=== PATIENT | male | born 1965 ===

== ENCOUNTER 2018-02-22 21:42 | Emergency (ER) | payer OTHER ==
[~2018-02-22] VITALS: Ht 175.3 cm; Wt 122.0 kg
[2018-02-22] MEDS ORDERED: AVALIDE 300-121 EACH PO (22:05)
[2018-02-22] MEDS ORDERED: SYNTHROID100 MCG PO (22:05)
== END 2018-02-23 04:09 | disposition home or self-care (01) ==
LOC: ER 21:42 → CPU-OBS 22:11 → ER 02-23 04:09
DX: R07.89 Other chest pain (principal); I10 Essential (primary) hypertension
CPT/HCPCS: G0378; G0379; 93005

== ENCOUNTER 2018-03-06 07:16 | Outpatient (CLI) | payer OTHER ==
[~2018-03-06 07:16] MED LIST: AVALIDE 300-121 EACH PO; SYNTHROID100 MCG PO
[2018-03-09] MEDS ORDERED: ULTRAM50 MG PO (14:14)
[2018-03-09] MEDS ORDERED: FLAGYL500MG PO (14:14)
[2018-03-09] MEDS ORDERED: INTESTINEX680 M1 PO (14:14)
[2018-03-09] MEDS ORDERED: CIPRO500 MG PO (14:14)
== END 2018-03-06 07:22 | disposition home or self-care (01) ==
LOC: NUCLEAR 07:16
DX: R07.89 Other chest pain (principal); I10 Essential (primary) hypertension; E11.9 Type 2 diabetes mellitus without complications
CPT/HCPCS: 78452; 93017; A9500; J0153

== ENCOUNTER → 2018-03-09 | Emergency (ER) | payer OTHER ==
[~2018-03-09] VITALS: Ht 175.3 cm; Wt 122.5 kg
[~2018-03-09] MED LIST changes: +CIPRO500 MG PO; +FLAGYL500MG PO; +INTESTINEX680 M1 PO; +ULTRAM50 MG PO
== END | disposition home or self-care (01) ==
LOC: ER 10:00
DX: K57.92 Diverticulitis of intestine, part unspecified, without perforation or abscess without bleeding (principal)

== ENCOUNTER 2019-03-12 09:11 | Outpatient (CLI) | payer OTHER | END 2019-03-12 17:01 | disposition home or self-care (01) | LOC: LAB 09:11 | DX: G50.1 Atypical facial pain (principal); Z51.81 Encounter for therapeutic drug level monitoring ==

== ENCOUNTER 2019-03-12 11:12 | Outpatient (CLI) | payer OTHER | END 2019-03-12 15:09 | disposition home or self-care (01) | LOC: MRI 11:12 | DX: R51 Headache (principal); G50.1 Atypical facial pain | CPT/HCPCS: 70553 ==

== ENCOUNTER 2020-05-09 20:11 | Emergency (ER) | payer OTHER ==
[~2020-05-09] VITALS: Ht 175.3 cm; Wt 129.3 kg
[2020-05-09] MEDS ORDERED: JANUVIA100 MG (20:22)
[2020-05-09] MEDS ORDERED: SIMVASTATIN5 MG (20:23)
== END 2020-05-09 23:51 | disposition home or self-care (01) ==
LOC: ER 20:11
DX: K52.89 Other specified noninfective gastroenteritis and colitis (principal); R10.31 Right lower quadrant pain; R10.11 Right upper quadrant pain